=== PATIENT | male | born 1955 | race Caucasian/White ===

== ENCOUNTER → 2017-08-06 | Outpatient (CLI) | payer BC ==
[~2017-08-06] MED LIST: COLESEVELAM PO; REGADENOSON 0.4 MG/5 ML SYR IV ONE; TYLENOL
== END ==
LOC: NM 08:36
PROVIDERS: ATTEND Internal Medicine Cardiovascular Disease
DX: R06.00 Dyspnea, unspecified (principal); R94.31 Abnormal electrocardiogram [ECG] [EKG]
CPT/HCPCS: 78452; 93017; A9502

== ENCOUNTER → 2017-08-08 | Outpatient (CLI) | payer BC ==
[~2017-08-08] MED LIST changes: -REGADENOSON 0.4 MG/5 ML SYR IV ONE
--- NOTE | 2017-08-08 11:03 | Diagnostic Imaging Report ---
TECHNIQUE: Magnetic resonance imaging of the RIGHT KNEE was performed WITHOUT injected contrast. HISTORY: Right knee pain COMPARISON: None available. FINDINGS: LIGAMENTS AND TENDONS: ACL: Intact PCL: Intact Collateral ligaments: Intact Iliotibial band: Unremarkable Popliteal tendon: Intact Extensor mechanism: Intact JOINT: Menisci: Medial: Degenerative signal with intrasubstance increased signal and probable small horizontal tear for example coronal image 12. Near complete radial tear to the posterior horn root junction sagittal image 18 and coronal image 8. Developing extrusion. Lateral: Intact Articular Cartilage: Medial Compartment: Partial thickness currently loss Lateral Compartment: No focal defect. Patellofemoral Compartment: No focal defect. Joint Fluid: Trace joint effusion with ruptured Nogueira's cyst. BONE: No focal or infiltrative bone marrow replacing abnormality. No acute fracture. SOFT TISSUES: Otherwise, unremarkable. IMPRESSION: Medial meniscus near complete radial tear posterior horn root junction with partial thickness cartilage loss. Signed by: Dr. Jozef Stone M.D. on 08/08/2017 10:59 AM
== END ==
LOC: MRI 08:43
PROVIDERS: ATTEND Specialist
DX: S83.241A Other tear of medial meniscus, current injury, right knee, initial encounter (principal)

== ENCOUNTER → 2017-09-12 | Day surgery (SDC) | payer BC ==
[~2017-09-12] MED LIST changes: +BUPIVACAINE 0.5%/EPI 30 ML SDV INJ ONE; +CEFAZOLIN SOD 2 GM/D5W 50ML 50 ML IV ONE; +DEXAMETHASONE SOD PHOS INJ 4 MG/ML VIAL ONE; +EPHEDRINE SULFATE INJ 50 MG/10 ML SYR ONE; +FENTANYL CITRATE/PF 100MCG/2 ML INJ ONE; +GLYCOPYRROLATE INJ 1MG/ 5 ML SYR ONE; +KETOROLAC TROMETHAMINE 30 MG/ML VIAL ONE; +LIDOCAINE HCL 2% LOCAL INJ 5 ML SDV VIAL INJ ONE; +MIDAZOLAM HCL 2 MG/2 ML VIAL ONE; +ONDANSETRON HCL INJ 2 MG/ML VIAL ONE; +PROPOFOL IV EMULSION 10 MG/ML 20 ML VIAL ONE; +SEVOFLURANE INHAL SOLN 250 ML PEN BTL ONE; +ZETIA10 MG PO
--- OUTSIDE RECORDS SUMMARY | 2017-09-12 07:48 | XMS REPORT ---
[facility] Address Unknown Phone Unavailable Care Team Providers Care Devulcanizer Head Name Role Phone EZ HERNÁNDEZ Unavailable Unavailable MAURA URENA Unavailable Unavailable Problems This patient has no known problems. Allergies, Adverse Reactions, Alerts This patient has no known allergies or adverse reactions. Medications This patient has no known medications. Results Test Description Test Time Test Comments Text Results Atomic Results Result Comments MRI RIGHT KNEE WO [place] [address] Patient Name: EZ ALMARAZ MR #: [id number] : 1955 Age/Sex: 61/M Req #: [id number] [facility] Physician: Ordered by: EZ HERNÁNDEZ MD Report #: [id number] Location: MRI Room/Bed: Procedure: [id number] MRI/MRI RIGHT KNEE WO Exam Date: 08/08/17 Exam Time : 918 REPORT STATUS: Signed TECHNIQUE: Magnetic resonance imaging of the RIGHT KNEE was performed WITHOUT injected contrast. HISTORY: Right knee pain COMPARISON: None available. FINDINGS: LIGAMENTS AND TENDONS: ACL: Intact PCL: Intact Collateral ligaments: Intact Iliotibial band: Unremarkable Popliteal tendon: Intact Extensor mechanism: Intact JOINT: Menisci: Medial: Degenerative signal with intrasubstance increased signal and probable small horizontal tear for example coronal image 12. Near complete radial tear to the posterior horn root junction sagittal image 18 and coronal image 8. Developing extrusion. Lateral: Intact Articular Cartilage: Medial Compartment: Partial thickness currently loss Lateral Compartment: No focal defect. Patellofemoral Compartment: No focal defect. Joint Fluid: Trace joint effusion with ruptured Nogueira's cyst. BONE: No focal or infiltrative bone marrow replacing abnormality. No acute fracture. SOFT TISSUES: Otherwise, unremarkable. IMPRESSION: Medial meniscus near complete radial tear posterior horn root junction with partial thickness cartilage loss. Signed by: Dr. Sal Jim M.D. on 08/08/2017 10:59 AM Dictated By: SAL JIM MD 105 Transcribed By: LINDA on 08/08/17 105 COPY TO: EZ HERNÁNDEZ MD Stress Test - Treadmill ONLY [place] [address] Patient Name : EZ ALMARAZ MR #: [id number] : 1955 Age/Sex: 61/M Adm Physician : MAURA URENA MD Admit Date : Location : [place] Room/Bed : REPORT: Cardiology Report DATE OF STUDY: August 06, 2017 NUCLEAR GATED MYOCARDIAL PERFUSION SCAN Nuclear gated myocardial perfusion scan performed as per protocol at the nuclear medicine lab at [facility]. Myoview was injected 10 millicuries for resting protocol and 30 millicuries for stress protocol. Lexiscan injected 0.4 mg intravenously as stress agent. IMPRESSION 1. Left ventricular ejection fraction is 55% to 60%. 2. No evidence of ischemia or scar noted. 3. Normal study. Job#: [id number] Signature Date Dictated By: MAURA URENA MD Transcribed By: SMEDS on 08/27/17 <Electronically signed by MAURA URENA MD><<Signature on File>>09/03/17 [id number] COPY TO:
--- NOTE | 2017-09-12 12:57 | Operative Report ---
DATE OF PROCEDURE: September 12, 2017 PREOPERATIVE DIAGNOSES 1. Right knee medial meniscus tear. 2. Right knee degenerative joint disease of the knee. POSTOPERATIVE DIAGNOSES 1. Right knee medial meniscus tear. 2. Right knee lateral meniscus tear. 3. Right knee symptomatic medial shelf plica. 4. Right knee degenerative joint disease of the knee. PROCEDURES PERFORMED 1. Right knee examination under anesthesia. 2. Right knee arthroscopy. 3. Right knee partial medial meniscectomy. 4. Right knee partial lateral meniscectomy. 5. Right knee chondroplasty of patella, trochlea, medial femoral condyle and medial plateau. 6. Arthroscopic resection of a symptomatic medial shelf plica. COMPUTER TYPESETTER: None. ANESTHESIA: General endotracheal intubation anesthesia. IV FLUIDS: Per the anesthesia record. DESCRIPTION OF PROCEDURE: Mr. Boyer was taken to the operating room and placed in the supine position on the operating table. Following induction of general anesthesia as well as endotracheal intubation, the patient's right lower extremity was examined under anesthesia. He was found to have a mild effusion within the knee joint but an otherwise ligamentously stable knee. The patient's lower extremity was prepped and draped in the standard surgical fashion. A 2-portal technique was used to provide this patient arthroscopic evaluation of the knee joint. Examination of the suprapatellar pouch, medial and lateral gutters found no evidence of loose bodies. The scope was advanced into the medial compartment. Examination of the medial compartment demonstrated chondromalacia of the articulating surfaces. There was also a tear at the level of the root of the posterior horn of the medial meniscus as well as the undersurface of the posterior half of the medial meniscus. A combination of biting forceps and a motorized shaver was used to resect the torn portion of meniscus. Chondroplasties of the medial femoral condyle and medial plateau were performed at this time. The scope was then advanced to the intercondylar notch. The anterior cruciate ligament was identified and found to be intact. The scope was advanced in the lateral compartment. There was no significant chondromalacia. There was actual tearing of the posterior horn of the lateral meniscus. A combination of biting forceps and motorized shaver was used to resect the torn portion of the lateral meniscus. The shaver was placed in the suprapatellar pouch and chondroplasty of the patella and trochlea was performed. The medial shelf plica was also resected at this time. The knee was deflated of its sterile normal saline. Each of the portal sites was closed using 4-0 nylon suture. The portal sites as well as the knee itself were then injected with half percent Marcaine with epinephrine. Sterile dressings were applied. The patient was awakened and taken to the postanesthesia care unit in stable condition. Job#: [id number]
== END | disposition home or self-care (01) ==
LOC: OR 07:46
PROVIDERS: ATTEND Specialist
DX: S83.221A Peripheral tear of medial meniscus, current injury, right knee, initial encounter (principal); S83.281A Other tear of lateral meniscus, current injury, right knee, initial encounter; M17.11 Unilateral primary osteoarthritis, right knee; M67.51 Plica syndrome, right knee; M22.41 Chondromalacia patellae, right knee; E78.5 Hyperlipidemia, unspecified; F17.290 Nicotine dependence, other tobacco product, uncomplicated; X58.XXXA Exposure to other specified factors, initial encounter; Z01.810 Encounter for preprocedural cardiovascular examination; Z68.33 Body mass index [BMI] 33.0-33.9, adult; Z86.19 Personal history of other infectious and parasitic diseases
CPT/HCPCS: 29880; 93005; J1100; J1885; J2001; J2250; J2405

== ENCOUNTER → 2025-01-09 | Emergency (ER) | payer BC ==
[~2025-01-09] MED LIST changes: -BUPIVACAINE 0.5%/EPI 30 ML SDV INJ ONE; -CEFAZOLIN SOD 2 GM/D5W 50ML 50 ML IV ONE; -DEXAMETHASONE SOD PHOS INJ 4 MG/ML VIAL ONE; -EPHEDRINE SULFATE INJ 50 MG/10 ML SYR ONE; -FENTANYL CITRATE/PF 100MCG/2 ML INJ ONE; -GLYCOPYRROLATE INJ 1MG/ 5 ML SYR ONE; -KETOROLAC TROMETHAMINE 30 MG/ML VIAL ONE; -LIDOCAINE HCL 2% LOCAL INJ 5 ML SDV VIAL INJ ONE; -MIDAZOLAM HCL 2 MG/2 ML VIAL ONE; -ONDANSETRON HCL INJ 2 MG/ML VIAL ONE; -PROPOFOL IV EMULSION 10 MG/ML 20 ML VIAL ONE; -SEVOFLURANE INHAL SOLN 250 ML PEN BTL ONE
== END | disposition left against medical advice (07) ==
LOC: FSED 10:30
DX: S69.91XA Unspecified injury of right wrist, hand and finger(s), initial encounter (principal)